=== PATIENT | male | born 1975 | race Caucasian/White ===

== ENCOUNTER 2019-01-12 11:44 | Inpatient (IN) | payer BC ==
[~2019-01-12] VITALS: Ht 180.3 cm; Wt 113.6 kg
[2019-01-12] MEDS ORDERED: GABAPENTIN100 MG PO (12:00)
[2019-01-12] MEDS ORDERED: CIPRO500 MG PO (12:01)
[2019-01-12] MEDS ORDERED: TYLENOL W/CODEI1 TAB PO (12:01)
[2019-01-12] MEDS ORDERED: FLOMAX0.4 MG PO (12:02)
--- NOTE | 2019-01-12 12:31 | NUR ---
NOTIFIED ladonna Rosa THAT PT WAS IN PAIN
[2019-01-12 13:41] LABS: APPEARANCE CLEAR (CLEAR); BACTERIA FEW /hpf (NONE SEEN); BILIRUBIN NEGATIVE (NEGATIVE); COLOR YELLOW (YELLOW); EPITHELIAL CELLS 0-5 /hpf (0-5); GLUCOSE NEGATIVE (NEGATIVE); KETONE NEGATIVE (NEGATIVE); MUCUS <1+ /lpf (NONE SEEN); NITRITE NEGATIVE (NEGATIVE); PROTEIN NEGATIVE (NEGATIVE); RED CELLS - URINE OCC /hpf (0-5); SPECIFIC GRAVITY 1.015 (1.005-1.020); UROBILINOGEN NORMAL (NORMAL); WHITE CELLS - URINE OCC /hpf (0-5)
[2019-01-12 13:48] LABS: ALBUMIN 3.6 g/dL (3.4-5.0); ANION GAP 14.9 mmol/L (8-16); BILIRUBIN - TOTAL 1.05 mg/dL (0.2-1.3); CALCIUM 9.2 mg/dL (8.5-10.1); CARBON DIOXIDE 23.8 mmol/L (21.0-32.0); CREATININE - SERUM 1.4 mg/dL (0.6-1.3); POTASSIUM - SERUM 3.7 mmol/L (3.5-5.1)
[2019-01-12 14:03] LABS: BASOPHILS 0.1 % (0-2); EOSINOPHILS 0.4 % (0-7); HEMATOCRIT 39.6 % (42.0-54.0); IMMATURE GRANULOCYTES 0.2 % (0-5); LYMPHOCYTES 12.6 % (15-50); MCH 30.8 pg (26.0-34.0); MCHC 35.4 g/dL (31.0-37.0); MEAN PLATELET VOLUME 12.4 fL (7.4-10.4); MONOCYTES 8.7 % (2-11); PLATELET COUNT 234 10x3/uL (130-400); RBC 4.55 10x6/uL (4.20-6.10); RDW 13.5 % (11.5-14.5); WBC 10.7 10x3/uL (4.8-10.8)
--- NOTE | 2019-01-12 14:45 | NUR ---
NS STARTED AT 150/HR PER MYLENE GAFFNEY INSTEAD OF 250/HR PER ORDER.
[2019-01-12 16:06] VITALS: BP 124/76; Ht 180.3 cm; Wt 113.6 kg
--- NOTE | 2019-01-12 18:54 | NUR ---
ATE MOST OF SUPPER. DENIES NEEDS. VOIDED WITHOUT DIFFICULTY. PAIN WELL MANAGED.
--- NOTE | 2019-01-12 21:30 | NUR ---
A&O X 4, AMBULATORY. DENMOJGANS PAIN AT THIS TIME, STATES IT IS WELL CONTROLLED WITH AEROBICS INSTRUCTOR. REDEADING MATERIAL FOR ANESTHESIA AND BLOOD CONSENTS LEFT WITH PT, BUT PT REQUESTS TO WAIT TO SIGN UNTIL COMES BACK IN AM.
[2019-01-12 21:49] VITALS: BP 124/84
--- NOTE | 2019-01-12 22:03 | NUR ---
TELEMTRY CALLED, WAS INFORMED THERE ARE NO MONITORS AVAILABLE.
[2019-01-13 02:49] VITALS: BP 138/93
--- NOTE | 2019-01-13 03:27 | NUR ---
I have reviewed this patient and I concur with the Shift Assessment completed by the Licensed Practical Nurse today this shift.
[2019-01-13 04:43] LABS: BASOPHILS 0.2 % (0-2); EOSINOPHILS 1.6 % (0-7); HEMATOCRIT 38.8 % (42.0-54.0); HEMOGLOBIN 13.6 g/dL (13.5-17.5); IMMATURE GRANULOCYTES 0.1 % (0-5); LYMPHOCYTES 28.2 % (15-50); MCH 30.5 pg (26.0-34.0); MCHC 35.1 g/dL (31.0-37.0); MEAN PLATELET VOLUME 12.3 fL (7.4-10.4); MONOCYTES 8.5 % (2-11); NEUTROPHILS 61.4 % (40-80); PLATELET COUNT 226 10x3/uL (130-400); RBC 4.46 10x6/uL (4.20-6.10); RDW 13.3 % (11.5-14.5); WBC 8.5 10x3/uL (4.8-10.8)
[2019-01-13 05:00] LABS: ANION GAP 15.7 mmol/L (8-16); CALCIUM 8.6 mg/dL (8.5-10.1); CARBON DIOXIDE 24.7 mmol/L (21.0-32.0); CREATININE - SERUM 1.2 mg/dL (0.6-1.3); MAGNESIUM - SERUM 1.7 mg/dL (1.8-2.4); PHOSPHOROUS 3.3 mg/dL (2.5-4.9); POTASSIUM - SERUM 3.4 mmol/L (3.5-5.1)
[2019-01-13 06:29] VITALS: BP 141/87
--- NOTE | 2019-01-13 07:49 | NUR ---
PT RESTING IN BED WITH SPOUSE AT BEDSIDE. NO ACUTE DISTRESS NOTED AT THIS TIME. REPORTS PAIN 2/10 AT THIS TIME. 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 IV TO RIGHT FOREARM WITH NS @ KVO, INFUSING VIA PUMP. SITE WITHOUT REDNESS OR EDEMA. PT REMAINS NPO FOR UPCOMING PROCEDURE. CONSENTS OBTAINED AT THIS TIME. DENIES FURTHER NEEDS AT THIS TIME. CL WITHIN REACH. ENCOURAGED TO CALL WITH NEEDS.
[2019-01-13 10:26] VITALS: BP 128/89
[2019-01-13 12:43] VITALS: BP 127/88
--- NOTE | 2019-01-13 13:27 | MORECARE ---
CASE MANAGEMENT DISCHARGE SUMMARY PATIENT: ADITHYA FULLER UNIT: [id number] ADM DATE: 01/12/19 AGE: 43 : [birth year] SEX: M ROOM/BED: D.2202 AUTHOR: JEANE,DOC PHYSICIAN: REFERRING PHYSICIAN: BRADLEY SANTAMARIA MD DATE OF SERVICE: 01/13/19 Discharge Plan Patient Name: ADITHYA FULLER Facility: [facility]:[place] : 1975 Planned Disposition: Home Anticipated Discharge Date: Discharge Date: Expected LOS: Initial Reviewer: [email or web address] Initial Review Date: 01/12/2019 Generated: 01/13/19 2:26 pm Comments DCP- Discharge Planning Updated by [email or web address]: Rachele Vásquez on 01/13/19 12:[address] Patient Name: ADITHYA FULLER Admission Status: ER Accout number: [id number] Admission Date: 01-12-2019 : 1975 Admission Diagnosis: Attending: BRADLEY SANTAMARIA Current LOS: 1 Anticipated DC Date: Planned Disposition: Home Primary Insurance: [employer] OUT OF STATE Discharge Planning Comments: CM met with patient to complete initial dc planning assessment. CM educated patient on the CM role and verbal consent given by patient to complete assessment. Patient lives at home with his where he is independent with his care. At discharge patient plans to return home and feels this is a safe discharge. CM discussed availability of home health, rehab services, and medical equipment. Patient denied known discharge needs at this time. CM will continue to follow and will assist as needed with dc plans/needs. Planogrammer: Rachele Vásquez DCPIA - Discharge Planning Initial Assessment Updated by [email or web address]: Rachele Vásquez on 01/13/19 1:23 pm * Is the patient Alert and Oriented? Yes * How many steps to enter\exit or inside your home? * PCP KAITLYNN * [facility] * Preadmission Environment Home with Family * ADLs Independent * Equipment None * List name and contact numbers for known caregivers / representatives who currently or will assist patient after discharge: DAJUAN FULLER [phone] * Verbal permission to speak to the caregivers and representatives has been obtained from the patient. N/A * Community resources currently utilized None * Additional services required to return to the preadmission environment? No * Has this patient been hospitalized within the prior 30 days at any hospital? No Patient Name: ADITHYA FULLER Page 38715 at 1327 All edits/amendments must be made on the electronic document DICTATION DATE: 01/13/19 1326 [place] MATE: KAYLEE 01/13/19 1326 RPT#: [id number] DC DATE: STATUS: ADM IN [facility] [address] [place] [address] END OF REPORT
[2019-01-13] MEDS ORDERED: LEVOFLOXACIN500 MG PO (16:14)
[2019-01-13 16:22] VITALS: BP 137/86
[2019-01-13] MEDS ORDERED: HYDROCODON-ACE1 EAC7 PO (16:36)
--- NOTE | 2019-01-13 21:34 | OP ---
PATIENT NAME: ADITHYA FULLER MEDICAL RECORD: [id number] :[birth year] LOCATION:D.MS [address]2202 ADMISSION DATE:01/12/19 SURGEON: RHYS FORRESTER MD DATE OF OPERATION: 01/13/2019 SURGEON: Rhys Forrester MD ANESTHESIA: General anesthesia by Ross Oleary CRNA. DIAGNOSIS: A 4-mm left ureteral stone. FINDINGS: Radiodense 4-mm left ureteral stone at the left L4 transverse process level. PROCEDURE: Left extracorporeal shock wave lithotripsy (ESWL) times 3000 shocks. BLOOD LOSS: None. CLINICAL HISTORY: This is a 43-year-old male who presented with acute left flank pain. He went to a walk-in clinic and they performed CT scan at an outside facility. I do not have the images from that facility, but we do have a report that there is a 4-mm stone in the left ureter at the level of the L4 vertebral body. He continues to have pain. I obtained a KUB while he was in the hospital for pain control. The KUB did not show any obvious radiodensity. However, since he continues to have pain, we decided to proceed with a left ESWL. DESCRIPTION OF PROCEDURE: The patient was placed on the treatment table. We first performed fluoroscopy to try to find the stone. We started at the L4 vertebral body level. We found by obliquing the patient that the stone was being hidden by the transverse process of L4. Once in the oblique position, the stone became much more visible. At this point, we were then able to give him general anesthesia. The stone was targeted in 2 planes. We checked with fluoroscopy at 1500 and then 2000 shocks. It broke down quite slowly. Therefore, we gave the stone the full 3000 shocks. At this point, the stone did breakdown. I will see the patient in follow up in one month's time with a KUB. TRANSINT:[id number] Voice Confirmation ID: [id number] DOCUMENT ID: [id number] RHYS FORRESTER MD at 2134 CC: [id number] DICTATION DATE: 01/13/19 1555 LENS BLOCK GAUGER: 01/13/19 1842 DIS IN 01/13/19 [place] [id number] [place] [address]
--- NOTE | 2019-01-17 13:51 | MORECARE ---
CASE MANAGEMENT DISCHARGE SUMMARY PATIENT: ADITHYA FULLER UNIT: [id number] ADM DATE: 01/12/19 AGE: 43 : 73 SEX: M ROOM/BED: D.2202 AUTHOR: JEANE,DOC PHYSICIAN: REFERRING PHYSICIAN: BRADLEY SANTAMARIA MD DATE OF SERVICE: 01/17/19 Discharge Plan Patient Name: ADITHYA FULLER Facility: [facility]:[place] : 1975 Planned Disposition: Home Anticipated Discharge Date: Discharge Date: 01/13/2019 Expected LOS: Initial Reviewer: [email or web address] Initial Review Date: 01/12/2019 Generated: 01/17/19 2:51 pm Comments DCP- Discharge Planning Updated by [email or web address]: Rachele Vásquez on 01/13/19 12:[address] Patient Name: ADITHYA FULLER Admission Status: ER Accout number: [id number] Admission Date: 01-12-2019 : 1975 Admission Diagnosis: Attending: BRADLEY SANTAMARIA Current LOS: 1 Anticipated DC Date: Planned Disposition: Home Primary Insurance: [employer] OUT OF STATE Discharge Planning Comments: CM met with patient to complete initial dc planning assessment. CM educated patient on the CM role and verbal consent given by patient to complete assessment. Patient lives at home with his where he is independent with his care. At discharge patient plans to return home and feels this is a safe discharge. CM discussed availability of home health, rehab services, and medical equipment. Patient denied known discharge needs at this time. CM will continue to follow and will assist as needed with dc plans/needs. Straddle Bug: Rachele Vásquez DCPIA - Discharge Planning Initial Assessment Updated by [email or web address]: Rachele Vásquez on 01/13/19 1:23 pm * Is the patient Alert and Oriented? Yes * How many steps to enter\exit or inside your home? * PCP KAITLYNN * [facility] * Preadmission Environment Home with Family * ADLs Independent * Equipment None * List name and contact numbers for known caregivers / representatives who currently or will assist patient after discharge: DAJUAN FULLER [phone] * Verbal permission to speak to the caregivers and representatives has been obtained from the patient. N/A * Community resources currently utilized None * Additional services required to return to the preadmission environment? No * Has this patient been hospitalized within the prior 30 days at any hospital? No Last DP export: 01/13/19 12:27 p Patient Name: ADITHYA FULLER Page 87000 at 1351 All edits/amendments must be made on the electronic document DICTATION DATE: 01/17/19 1351 HAM TRIMMER: KAYLEE 01/17/19 1351 RPT#: [id number] DC DATE:01/13/19 STATUS: DIS IN [facility] [address] [place] [address] END OF REPORT
== END 2019-01-13 19:31 | disposition home or self-care (01) | DRG 691 ==
LOC: D.ER 11:44 → D.MS 14:07 → OBSVTIME 14:13 → D.MS 17:11
PROVIDERS: Emergency Medicine; Urology; ADMIT Internal Medicine Nephrology; ATTEND Internal Medicine Nephrology
PROC: 0TF7XZZ Fragmentation in Left Ureter, External Approach (ICD-10-PCS; principal; 2019-01-13 13:00)
DX: N13.2 Hydronephrosis with renal and ureteral calculous obstruction (principal); F17.203 Nicotine dependence unspecified, with withdrawal; N39.0 Urinary tract infection, site not specified; N17.9 Acute kidney failure, unspecified; E83.42 Hypomagnesemia; E87.6 Hypokalemia

== ENCOUNTER 2019-01-20 08:55 | Day surgery (SDC) | payer BC ==
[2019-01-20] VITALS (13 sets, daily range): BP systolic 109–163; BP diastolic 72–92; Ht 180.3 cm; Wt 111.4 kg
[~2019-01-20] VITALS: Ht 180.3 cm; Wt 111.4 kg
[~2019-01-20 08:55] MED LIST: CIPRO500 MG PO; FLOMAX0.4 MG PO; GABAPENTIN100 MG PO; HYDROCODON-ACE1 EAC7 PO; LEVOFLOXACIN500 MG PO; TYLENOL W/CODEI1 TAB PO
--- NOTE | 2019-01-20 13:52 | NUR ---
EQUAL STRENGHTS ALL 4 EXTREMETIES
--- NOTE | 2019-01-20 14:47 | NUR ---
REQUEST TO HOLD FROM CHARGE MEENAKSHI IN PACU UNTIL CODE IS IN PROGESS
--- NOTE | 2019-01-20 15:00 | NUR ---
PATIENT RESTING AT THIS TIME. VSS. PATIENT IS CONFUSED WHEN AWOKEN. CALL LIGHT WITHIN REACH. WILL CONTINUE TO MONITOR.
--- NOTE | 2019-01-20 15:00 | NUR ---
PATIENT ALERT AND ORIENTED. NO NEEDS AT THIS TIME. NO DISTRESS NOTED. ROOM AIR. VSS. WILL CONTINUE TO MONITOR.
--- NOTE | 2019-01-20 17:13 | NUR ---
FAMILY AT BEDSIDE. NO CHANGES NOTED. PATIENT SITTING UP EATING DINNER. WILL CONTINUE TO MONITOR
--- NOTE | 2019-01-20 20:00 | NUR ---
BEDSIDE REPORT AND SHIFT ASSESSMENT COMPLETE. C/O PAIN IN NECK, MEDS GIVEN PER MAR. DENIES ANY OTHER NEEDS AT THIS TIME. WILL CONTINUE TO MONITOR.
--- NOTE | 2019-01-20 22:25 | NUR ---
DR. CALHOUN NOTIFIED OF PT C/O BREAKTHROUGH PAIN, ALLERGY (ITCHING) TO [facility]. NEW ORDERS REC'D.
--- NOTE | 2019-01-20 23:00 | NUR ---
REASSESSMENT COMPLETE. VSS, NO SIGNS OF ACUTE DISTRESS NOTED. NECK DRESSING WNL, CDI. DENIES NEEDS AT THIS TIME.
[2019-01-21] VITALS (11 sets, daily range): BP systolic 109–137; BP diastolic 61–86
--- NOTE | 2019-01-21 01:00 | NUR ---
DENIES ANY NEEDS AT THIS TIME. VSS, NO SIGNS OF ACUTE DISTRESS NOTED. WILL CONTINUE TO MONITOR.
--- NOTE | 2019-01-21 03:00 | NUR ---
REASSESSMENT COMPLETE. VSS, NO SIGNS OF ACUTE DISTRESS NOTED. DENIES NEEDS AT THIS TIME.
--- NOTE | 2019-01-21 05:00 | NUR ---
PT RESTING QUIETLY. VSS, NO SIGNS OF DISTRESS NOTED. DENIES NEEDS AT THIS TIME.
--- NOTE | 2019-01-21 07:15 | NUR ---
PATIENT ALERT AND ORIENTED. BREAKFAST AT BEDSIDE. ORAL CARE PROVIDED. VSS. NO NEEDS AT THIS TIME. PATIENT STATES PERCOCET GAVE HIM RELIEF. WILL CONTINUE TO MONITOR.
--- NOTE | 2019-01-21 09:42 | NUR ---
patient getting dressed. family at bedside. CHG bath done at this time.
[2019-01-21] MEDS ORDERED: PERCOCET 10-321 EAC1 PO (13:51)
--- NOTE | 2019-01-22 09:56 | OP ---
PATIENT NAME: ADITHYA FULLER MEDICAL RECORD: [id number] :[birth year] LOCATION:[place] ADMISSION DATE: SURGEON: YASMANI BARRIOS MD DATE OF OPERATION: 01/20/2019 PREOPERATIVE DIAGNOSES: Disc herniation, osteophyte formation at C6-C7 left with left C7 radiculopathy. POSTOPERATIVE DIAGNOSES: Disc herniation, osteophyte formation at C6-C7 left with left C7 radiculopathy. PROCEDURE: Mobi-C artificial disc replacement C6-C7, removal of a C5-C6 anterior cervical plate. SURGEON: Yasmani Barrios MD DESCRIPTION AND TECHNIQUE: After induction of general endotracheal anesthesia, the patient was positioned supine on the operating table with the neck in a neutral position. After sterile prep and drape of the cervical spine, a transverse skin incision was carried out from midline to the sternocleidomastoid muscle at the level C6-C7. After infiltration of 1:100,000 epinephrine and 1% lidocaine, the platysma was incised with 15-blade. Using blunt and sharp dissection with Metzenbaum scissors, I proceeded in avascular plane medial to the carotid sheath. C6-C7 interspace was identified with fluoroscopic x-ray and spinal needle. The longus colli muscles were elevated from bodies of C6 and C7. A self-retaining retractor was placed deep to the longus colli muscles. The anterior cervical plate and screws at C5-C6 was exposed in a subperiosteal manner. The screws were backed out and the plate was removed and sent to pathology for gross only. C5-C6 interspace appeared to be a fused solidly. [place] distracting pins were placed by the C6 and C7. Disc space was incised under distraction. Disc material was removed with pituitary rongeurs and curettes. The posterior longitudinal ligament surgery Cloward rongeurs. Following this, the dura was decompressed well. A trial estimated that the correct size of the artificial disc space was 15 x 19 x 7 mm. A good position of the device was confirmed with AP and lateral fluoroscopic x-ray. Meticulous hemostasis was maintained throughout the wound. The wound was irrigated with copious amounts of Ancef irrigant solution. The platysma was closed with interrupted 4-0 Vicryl suture, the subdermal layer was closed with interrupted 4-0 Vicryl suture. The skin was reapproximated with Steri-Strips and benzoin. A sterile dressing was applied to the wound. The patient was awakened in good condition, taken to recovery. All counts were reported as correct. Estimated blood loss was minimal. TRANSINT:[id number] Voice Confirmation ID: [id number] DOCUMENT ID: [id number] YASMANI BARRIOS MD at 0956 CC: [id number] DICTATION DATE: 01/20/19 1408 DIRECTOR OF WORKFORCE DEVELOPMENT: 01/20/19 1610 [facility] 01/21/19 [place] [id number]
== END 2019-01-21 14:18 | disposition home or self-care (01) ==
LOC: D.ICU 08:55 → D.OPS 08:55 → D.PAN 09:15 → D.OPS 09:15 → D.ICU 14:28 → D.OPS 01-21 14:18
PROVIDERS: ATTEND Neurological Surgery
DX: M50.123 Cervical disc disorder at C6-C7 level with radiculopathy (principal); M25.78 Osteophyte, vertebrae; Z01.812 Encounter for preprocedural laboratory examination

== ENCOUNTER → 2019-02-16 09:36 | Outpatient (CLI) | payer BC ==
[2019-01-20 16:26] VITALS: BMI 34.9
[~2019-02-16 09:36] MED LIST changes: +PERCOCET 10-321 EAC1 PO
== END | disposition home or self-care (01) ==
LOC: D.RAD 09:36
PROVIDERS: ATTEND Urology
DX: N20.1 Calculus of ureter (principal)